=== PATIENT | male | born 1980 | race African-American/Black ===

== ENCOUNTER 2022-12-24 00:38 | Emergency (ER) | payer MEDICAID ==
[~2022-12-24] VITALS: Ht 177.8 cm; Wt 83.0 kg
[2022-12-24 01:43] VITALS: BP_SYST 127; PULSE 61; RESP 17; TEMP 98.1; O2SAT 99
[2022-12-24] MEDS ORDERED: ACETAMINOPHEN 500 MG TABLET PO ONE (03:15)
[2022-12-24] MEDS ORDERED: KETOROLAC TROMETHAMINE 15 MG VIAL IM ONE (03:15)
[2022-12-24] MEDS ORDERED: KETOROLAC TROMETHAMINE 15 MG VIAL ONE (03:30)
[2022-12-24] MEDS ORDERED: ACETAMINOPHEN 325 MG TABLET ONE (03:31)
[2022-12-24 05:16] VITALS: BP_SYST 136; PULSE 82; RESP 18; TEMP 98.1; O2SAT 98
== END 2022-12-24 05:10 | disposition home or self-care (01) ==
LOC: SED 00:38
DX: S82.51XA Displaced fracture of medial malleolus of right tibia, initial encounter for closed fracture (principal); S96.811A Strain of other specified muscles and tendons at ankle and foot level, right foot, initial encounter; Z79.899 Other long term (current) drug therapy; W21.05XA Struck by basketball, initial encounter; Y93.67 Activity, basketball; Y92.89 Other specified places as the place of occurrence of the external cause; Y99.8 Other external cause status
CPT/HCPCS: 99283; 73610; 96372; J1885

== ENCOUNTER 2024-02-07 20:32 | Inpatient (IN) | payer MEDICAID ==
[~2024-02-07] VITALS: Ht 177.8 cm; Wt 76.7 kg
[2024-02-07 20:47] VITALS: BP_SYST 114; PULSE 89; RESP 18; TEMP 98.2; O2SAT 98
[2024-02-07 23:15] LABS: BASOPHILS % (AUTO) 0.4 % (0.0-2.0); EOSINOPHILS # (AUTO) 0.2 K/uL (0.0-0.4); EOSINOPHILS % (AUTO) 3.6 % (0.0-4.0); HEMATOCRIT 38.3 % (36-54); HEMOGLOBIN 13.1 g/dL (14.0-18.0); LYMPHOCYTES # (AUTO) 2.1 K/uL (1.0-5.5); LYMPHOCYTES % (AUTO) 36.2 % (20.5-51.5); MEAN CORPUSCULAR HEMOGLOBIN 31 pg (27-31); MEAN CORPUSCULAR HGB CONC 34 % (32-36); MEAN CORPUSCULAR VOLUME 91 fL (79.0-98.0); MONOCYTES # (AUTO) 0.3 K/uL (0.0-1.0); MONOCYTES % (AUTO) 5.7 % (1.7-9.3); NEUTROPHILS # (AUTO) 3.2 K/uL (1.8-7.7); NEUTROPHILS % (AUTO) 54.1 % (40.0-70.0); PLATELET COUNT (AUTO) 157 K/uL (130-430); RED BLOOD CELL COUNT(AUTO) 4.22 MIL/uL (4.2-6.2); RED CELL DISTRIBUTION WIDTH 13.2 % (9.0-15.0); WHITE BLOOD COUNT (AUTO) 5.9 K/uL (4.8-10.8)
[2024-02-07 23:39] LABS: ALANINE AMINOTRANSFERASE 37 U/L (12-78); ALBUMIN 3.5 g/dL (3.4-4.8); ANION GAP 6 (5-15); ASPARTATE AMINOTRANSFERASE 47 U/L (10-37); CARBON DIOXIDE 31 mmol/L (23-29); CHLORIDE 110 mmol/L (98-107); CREATININE 1.48 mg/dL (0.55-1.30); GFR AFRICAN AMERICAN 66 mL/min (>90); GLUCOSE 96 mg/dL (74-106); POTASSIUM 4.2 mmol/L (3.5-5.1); SODIUM SERUM 147 mmol/L (136-145); TOTAL BILIRUBIN 0.3 mg/dL (0.0-1.0); TOTAL PROTEIN, SERUM 7.1 g/dL (6.4-8.3); UREA NITROGEN, BLOOD 15 mg/dL (8-21)
[2024-02-07 23:49] LABS: ALCOHOL, BLOOD 24 mg/dL (<10); BILIRUBIN,DIRECT 0.1 mg/dL (0.0-0.3); CREATINE KINASE, TOTAL 1595 U/L (39-308); LIPASE 27 U/L (16-77)
[2024-02-07 23:52] LABS: GFR NON AFRICAN-AMERICAN 55 mL/min (>90)
[2024-02-08 00:02] LABS: BILIRUBIN,URINE NEGATIVE (NEGATIVE); BLOOD, URINE NEGATIVE (NEGATIVE); CLARITY/URINE CLEAR (CLEAR); COLOR,URINE YELLOW (YELLOW); GLUCOSE,URINE NEGATIVE (NEGATIVE); KETONES,URINE NEGATIVE (NEGATIVE); LEUKOCYTE ESTERASE ,URINE NEGATIVE (NEGATIVE); NITRITE, URINE NEGATIVE (NEGATIVE); PROTEIN URINE NEGATIVE (NEGATIVE)
[2024-02-08 00:26] LABS: BARBITURATE, URINE NEGATIVE (NEG <=200); URINE AMPHETAMINE NEGATIVE (NEG <=500)
[2024-02-08 00:27] LABS: BENZODIAZEPINE, URINE NEGATIVE (NEG <=150); CANNABINOID, URINE POSITIVE (NEG <=50); COCAINE, URINE NEGATIVE (NEG <=150); METHAMPHETAMINES SCREEN,URINE NEGATIVE (NEG <=500); OPIATE, URINE POSITIVE (NEG <=100); PHENCYCLIDINE SCREEN,URINE NEGATIVE (NEG <=25); URINE METHADONE NEGATIVE (NEG <=200); URINE OXYCODONE SCREEN NEGATIVE (NEG <=100)
[2024-02-08 00:28] LABS: UR TRICYCLIC ANTIDEPRESSANTS NEGATIVE (NEG <=300)
[2024-02-08 00:53] LABS: CKMB RELATIVE INDEX 0.1 (0.0-2.9); CREATINE KINASE MB 0.9 ng/mL (0-3.6)
[2024-02-08] MEDS ORDERED: ACETAMINOPHEN 325 MG TABLET PO PRN ×3 (01:00→07:00)
[2024-02-08] MEDS ORDERED: ONDANSETRON HCL 4 MG/2 ML VIAL IVP PRN (01:00)
[2024-02-08] MEDS: NACL 0.9% 2,000 ML IV ONE (01:10)
[2024-02-08] MEDS: HYDROcodone/ACETAMIN 5-325 MG TAB (NORCO/ VICODIN) PO PRN (03:13)
[2024-02-08] MEDS: NS 500 ML IV ONE (04:34)
[2024-02-08] MEDS ORDERED: LORazepam 2 MG/ML VIAL IVP PRN (06:15)
[2024-02-08] MEDS ORDERED: NACL 0.9% 1,000 ML IV SCH (06:30)
[2024-02-08] MEDS: MORPHINE 2 MG/ML INJ. SYRINGE IVP PRN (06:53)
[2024-02-08] MEDS: 0.45% NS 500 ML IV SCH (06:55)
[2024-02-08 09:42] LABS: BASOPHILS % (AUTO) 0.7 % (0.0-2.0); EOSINOPHILS # (AUTO) 0.1 K/uL (0.0-0.4); EOSINOPHILS % (AUTO) 2.5 % (0.0-4.0); HEMATOCRIT 36.9 % (36-54); HEMOGLOBIN 12.3 g/dL (14.0-18.0); LYMPHOCYTES # (AUTO) 2.4 K/uL (1.0-5.5); MEAN CORPUSCULAR HEMOGLOBIN 31 pg (27-31); MEAN CORPUSCULAR HGB CONC 33 % (32-36); MEAN CORPUSCULAR VOLUME 92 fL (79.0-98.0); MONOCYTES # (AUTO) 0.4 K/uL (0.0-1.0); MONOCYTES % (AUTO) 7.9 % (1.7-9.3); NEUTROPHILS # (AUTO) 1.9 K/uL (1.8-7.7); NEUTROPHILS % (AUTO) 39.9 % (40.0-70.0); PLATELET COUNT (AUTO) 131 K/uL (130-430); RED BLOOD CELL COUNT(AUTO) 4.03 MIL/uL (4.2-6.2); RED CELL DISTRIBUTION WIDTH 13.2 % (9.0-15.0); WHITE BLOOD COUNT (AUTO) 4.8 K/uL (4.8-10.8)
[2024-02-08 09:52] LABS: PROTHROMBIN TIME 10.4 SECS (9.5-12.5)
[2024-02-08 09:55] LABS: ALBUMIN 3.1 g/dL (3.4-4.8); CALCIUM 7.9 mg/dL (8.4-11.0); CREATININE 1.12 mg/dL (0.55-1.30); POTASSIUM 3.8 mmol/L (3.5-5.1); TOTAL BILIRUBIN 0.3 mg/dL (0.0-1.0); TOTAL PROTEIN, SERUM 5.9 g/dL (6.4-8.3)
[2024-02-08 10:22] LABS: CKMB RELATIVE INDEX 0.1 (0.0-2.9)
[2024-02-08] MEDS: HEPARIN SODIUM,PORCINE 5,000 UNITS/ML VIAL SUBCUT SCH (10:53)
[2024-02-08 18:34] VITALS: BP_SYST 115; PULSE 47; RESP 18; TEMP 96.9; O2SAT 96
[2024-02-08 20:00] VITALS: BP_SYST 110; PULSE 59; RESP 17; TEMP 98.4; O2SAT 99
[2024-02-08] MEDS ORDERED: ZOLPIDEM TARTRATE 5 MG TABLET PO PRN (21:15)
[2024-02-09] VITALS: BP_SYST 115; PULSE 61; RESP 16; TEMP 98.2; O2SAT 99
[2024-02-09 07:12] LABS: BASOPHILS % (AUTO) 0.6 % (0.0-2.0); EOSINOPHILS # (AUTO) 0.1 K/uL (0.0-0.4); EOSINOPHILS % (AUTO) 3.1 % (0.0-4.0); HEMATOCRIT 36.7 % (36-54); HEMOGLOBIN 12.3 g/dL (14.0-18.0); LYMPHOCYTES # (AUTO) 1.9 K/uL (1.0-5.5); MEAN CORPUSCULAR HEMOGLOBIN 31 pg (27-31); MEAN CORPUSCULAR HGB CONC 34 % (32-36); MEAN CORPUSCULAR VOLUME 91 fL (79.0-98.0); MONOCYTES # (AUTO) 0.3 K/uL (0.0-1.0); NEUTROPHILS # (AUTO) 1.8 K/uL (1.8-7.7); NEUTROPHILS % (AUTO) 42.3 % (40.0-70.0); PLATELET COUNT (AUTO) 129 K/uL (130-430); RED BLOOD CELL COUNT(AUTO) 4.02 MIL/uL (4.2-6.2); WHITE BLOOD COUNT (AUTO) 4.1 K/uL (4.8-10.8)
[2024-02-09 07:27] LABS: ERYTHROCYTE SEDIMENTATION RATE 1 MM/HR (0-15)
[2024-02-09 07:38] LABS: ALBUMIN 2.9 g/dL (3.4-4.8); CALCIUM 8.5 mg/dL (8.4-11.0); CREATININE 1.03 mg/dL (0.55-1.30); POTASSIUM 3.9 mmol/L (3.5-5.1); THYROID STIMULATING HORMONE 2.59 uIu/mL (0.34-4.82); TOTAL BILIRUBIN 0.5 mg/dL (0.0-1.0); TOTAL PROTEIN, SERUM 5.7 g/dL (6.4-8.3)
[2024-02-09 07:50] VITALS: BP_SYST 96; PULSE 63; RESP 16; TEMP 98.1; O2SAT 100
[2024-02-09 13:17] VITALS: BP_SYST 103; PULSE 80; RESP 20; TEMP 99; O2SAT 99
[2024-02-09 20:00] VITALS: BP_SYST 127; PULSE 79; RESP 18; TEMP 98.5; O2SAT 97
[2024-02-10] VITALS: BP_SYST 118; PULSE 75; RESP 17; TEMP 98.2; O2SAT 96
[2024-02-10 06:45] LABS: BASOPHILS % (AUTO) 0.6 % (0.0-2.0); EOSINOPHILS # (AUTO) 0.1 K/uL (0.0-0.4); EOSINOPHILS % (AUTO) 2.3 % (0.0-4.0); HEMATOCRIT 36.8 % (36-54); HEMOGLOBIN 12.4 g/dL (14.0-18.0); LYMPHOCYTES # (AUTO) 2.2 K/uL (1.0-5.5); LYMPHOCYTES % (AUTO) 49.7 % (20.5-51.5); MEAN CORPUSCULAR HEMOGLOBIN 31 pg (27-31); MEAN CORPUSCULAR HGB CONC 34 % (32-36); MEAN CORPUSCULAR VOLUME 91 fL (79.0-98.0); MONOCYTES # (AUTO) 0.4 K/uL (0.0-1.0); MONOCYTES % (AUTO) 8.2 % (1.7-9.3); NEUTROPHILS # (AUTO) 1.7 K/uL (1.8-7.7); NEUTROPHILS % (AUTO) 39.2 % (40.0-70.0); PLATELET COUNT (AUTO) 144 K/uL (130-430); RED BLOOD CELL COUNT(AUTO) 4.03 MIL/uL (4.2-6.2); RED CELL DISTRIBUTION WIDTH 12.8 % (9.0-15.0); WHITE BLOOD COUNT (AUTO) 4.3 K/uL (4.8-10.8)
[2024-02-10 08:00] LABS: CALCIUM 8.5 mg/dL (8.4-11.0); CREATININE 1.13 mg/dL (0.55-1.30); POTASSIUM 3.7 mmol/L (3.5-5.1); TOTAL BILIRUBIN 0.4 mg/dL (0.0-1.0); TOTAL PROTEIN, SERUM 5.8 g/dL (6.4-8.3)
[2024-02-10 09:50] VITALS: BP_SYST 131; PULSE 79; RESP 18; TEMP 97.1; O2SAT 98
[2024-02-10 09:56] VITALS: BP_SYST 131; PULSE 79; RESP 18; TEMP 97.1; O2SAT 98
[2024-02-10 09:58] VITALS: O2SAT 97
[2024-02-10] MEDS ORDERED: IBUP-1619 PO (13:04)
[2024-02-10] MEDS ORDERED: ACET325C6 PO (13:04)
[2024-02-11 14:06] LABS: ANTI NUCLEAR AB WITH REFLEX Negative (Negative)
== END 2024-02-10 10:25 | disposition home or self-care (01) | DRG 351 ==
LOC: SED 20:32 → SMU 02-08 00:48
PROVIDERS: ADMIT Internal Medicine; ATTEND Internal Medicine
DX: M62.82 Rhabdomyolysis (principal); N17.0 Acute kidney failure with tubular necrosis; E87.0 Hyperosmolality and hypernatremia; E87.5 Hyperkalemia; F10.20 Alcohol dependence, uncomplicated; F11.90 Opioid use, unspecified, uncomplicated; Z79.899 Other long term (current) drug therapy; Z88.8 Allergy status to other drugs, medicaments and biological substances
CPT/HCPCS: 36415; 73502; 76770; 80048; 80053; 80076; 80307; 81001; 81003; 82550; 82553; 83615; 83690; 84443; 84484; 85025; 85610; 85651; 86038; 86235; 86431; 93005; 93970; 97116-GP; 97530-GP; 99285; G0482; J1644; J2270; J7030